=== PATIENT | female | born 1960 | race Caucasian/White ===

== ENCOUNTER 2017-03-26 13:11 | Emergency (ER) | payer SELFPAY ==
[~2017-03-26] VITALS: Ht 160 cm; Wt 72.0 kg
[~2017-03-26 13:11] MED LIST: RANI150C PO
[2017-03-26 13:18] VITALS: BP 188/96; PULSE 92; RESP 18; TEMP 98.1; O2SAT 96
[2017-03-26 13:35] VITALS: O2SAT 96
[2017-03-26 13:50] LABS: AUTOMATED NEUTROPHIL # 2.4 TH/MM3 (1.8-7.7); BASOPHIL % 0.6 % (0.0-2.0); EOSINOPHIL % 0.2 % (0.0-4.0); HEMATOCRIT 45.6 % (35.0-46.0); HEMOGLOBIN 16.1 GM/DL (11.6-15.3); LYMPH % 16.6 % (9.0-44.0); LYMPHOCYTE # 0.6 TH/MM3 (1.0-4.8); MEAN CELL VOLUME 96.6 FL (80.0-100.0); MEAN CORPUSCULAR HGB CONC 35.2 % (32.0-36.0); MEAN PLATELET VOLUME 9.7 FL (7.0-11.0); MONO % 15.7 % (0.0-8.0); MONOCYTE # 0.6 TH/MM3 (0-0.9); NEUT % 66.9 % (16.0-70.0); PLATELET COUNT 136 TH/MM3 (150-450); RED BLOOD COUNT 4.72 MIL/MM3 (4.00-5.30); RED CELL DISTRIBUTION WIDTH 12.5 % (11.6-17.2); WHITE BLOOD COUNT 3.6 TH/MM3 (4.0-11.0)
[2017-03-26 13:58] LABS: CHLORIDE 93 MEQ/L (98-107); SODIUM (NA) 131 MEQ/L (136-145)
[2017-03-26 14:02] LABS: ALBUMIN 3.9 GM/DL (3.4-5.0); BICARBONATE 21.9 MEQ/L (21.0-32.0); CALCIUM 8.9 MG/DL (8.5-10.1); GLUCOSE,RANDOM 99 MG/DL (74-106)
[2017-03-26 14:03] LABS: BLOOD UREA NITROGEN 16 MG/DL (7-18)
[2017-03-26 14:05] LABS: ALT (GPT) 203 U/L (10-53); AST (GOT) 243 U/L (15-37); CREATININE 0.71 MG/DL (0.50-1.00); GLOMERULAR FILTRATION RATE 85 ML/MIN (>89)
[2017-03-26 14:07] LABS: TOTAL BILIRUBIN ADULT 0.4 MG/DL (0.2-1.0); TOTAL PROTEIN 8.9 GM/DL (6.4-8.2)
[2017-03-26 14:08] LABS: ALKALINE PHOSPHATASE 96 U/L (45-117)
[2017-03-26] MEDS ORDERED: ONDANSETRON HCL 4 MG/2 ML VIAL IV PUSH ONE (14:45)
[2017-03-26] MEDS ORDERED: SODIUM CHLOR 0.9% 1000 ML INJ 1,000 ML IV ONE (14:45)
[2017-03-26] MEDS ORDERED: LORazepam 2 MG/ML VIAL IV PUSH ONE (14:45)
--- NOTE | 2017-03-26 15:16 | RADRPT ---
EXAM DATE/TIME: 03/26/2017 14:56 [place] COMPARISON: No previous studies available for comparison. INDICATIONS : Nausea and vomiting. MEDICAL HISTORY : Alcohol abuse. SURGICAL HISTORY : Tubal ligation. ENCOUNTER: Initial ACUITY: 3 days PAIN SCORE: 0/10 LOCATION: Right upper quadrant MEASUREMENTS: LIVER: 16.8 cm length COMMON DUCT: 6 mm RIGHT KIDNEY: 9.7 x 5.8 x 5.5 cm FINDINGS: Ultrasound of the upper abdomen demonstrates increased echogenicity of the liver compatible with fatt y infiltration or hepatocellular disease. The gallbladder and pancreas are unremarkable. No intrahepa tic or extrahepatic ductal dilatation is seen. The right kidney is unremarkable. CONCLUSION: 1. Echogenic liver compatible with fatty infiltration or hepatocellular disease. Justus Valverde MD on March 26, 2017 at 15:13 Board Certified Radiologist. This report was verified electronically.
[2017-03-26 15:26] VITALS: BP 180/87; PULSE 84; RESP 20; O2SAT 95
[2017-03-26 15:57] LABS: BLOOD, URINE NEG (NEG); GLUCOSE,URINE NEG (NEG); KETONE, URINE 80 OR GREATER mg/dL (NEG); NITRITE,URINE NEG (NEG); URINE LEUKOCYTE ESTERASE NEG (NEG)
--- NOTE | 2017-03-26 15:57 | PD ---
HPI Chief Complaint: Alcohol/Drug Intoxication Time Seen by Provider: 13:52 Travel History International Travel<30 days: No Contact w/Intl Traveler<30days: No Traveled to known affect area: No History of Present Illness HPI 57 year old female with history of alcohol abuse comes to the ED for alcohol withdrawal symptoms progressively worsening for the past three days after trying to wean herself off of alcohol. She has been drinking approximately half a gallon of Vodka every two days for the past two months secondary to depression and life stress. She admits to trying to quit alcohol consumptions two weeks ago however experienced shaking, chills and palpitations and began drinking again with resolution of those symptoms at that time. Her last alcohol drink was yesterday and she has been having episodes of N/V/D, tremors, cardiac palpitations, diaphoresis and at home. She also reports seeing "shadows" while alone at her house. She denies auditory hallucinations, suicidal and homicidal ideation, and seizures. She would like to get off alcohol and wants to receive residential treatment. Past history of bipolar/depression, not currently under psychiatric care. No other complaints. Risk Factors:History of alcohol abuse Modifying Factors:[None] Associated sign and symptoms: N/V/D, tremors, palpitations. PFSH Past Medical History Medical History: Denies Significant Hx Diminished Hearing: No Tetanus Vaccination: > 5 Years Influenza Vaccination: No ?: Not LMP: MENOPAUSAL Menopausal: Yes Tubal Ligation: Yes Past Surgical History Surgical History: No Previous Surgery Social History Alcohol Use: Yes (1/2 gallon vodka every two days) Tobacco Use: Yes (1 PPD) Substance Use: Yes (Marijuana occ.) Allergies-Medications (Allergen,Severity, Reaction): Coded Allergies: No Known Allergies (Unverified Adverse Reaction, Unknown, 03/26/17) Reported Meds & Prescriptions Reported Meds & Active Scripts Active Review of Systems Except as stated in HPI: all other systems reviewed are Neg Physical Exam Narrative GENERAL: Elderly women in ED, mild distress, tremulous, at bedside. Awake and oriented 3. SKIN: Warm and dry. HEAD: Atraumatic. Normocephalic. EYES: Pupils equal and round. No scleral icterus. No injection or drainage. ENT: No nasal bleeding or discharge. Mucous membranes pink and moist. NECK: Trachea midline. No JVD. Supple. CARDIOVASCULAR: Regular rate and rhythm. RESPIRATORY: No accessory muscle use. Clear to auscultation. Breath sounds equal bilaterally. GASTROINTESTINAL: Abdomen soft, non-tender, nondistended. Hepatic and splenic margins not palpable. MUSCULOSKELETAL: Extremities without clubbing, cyanosis, or edema. No obvious deformities. NEUROLOGICAL: Awake and alert. No obvious cranial nerve deficits. Motor grossly within normal limits, with bilateral UE tremors. Normal speech. PSYCHIATRIC: Appropriate mood and affect; insight and judgment normal. Data Data Last Documented VS Vital Signs Date Time Temp Pulse Resp B/P (MAP) Pulse Ox O2 Delivery O2 Flow Rate FiO2 03/26/17 15:26 84 20 180/87 (118) 95 03/26/17 13:35 Room Air 03/26/17 13:18 98.1 Orders Orders Complete Blood Count With Diff (03/26/17 13:32) Comprehensive Metabolic Panel (03/26/17 13:32) Urinalysis - C+S If Indicated (03/26/17 13:32) Iv Access Insert/Monitor (03/26/17 13:32) Oxygen Administration (03/26/17 13:32) Oximetry (03/26/17 13:32) Lipase (03/26/17 13:32) Alcohol (Ethanol) (03/26/17 13:32) Sodium Chlor 0.9% 1000 Ml Inj (Ns 1000 M (03/26/17 14:45) Ondansetron Inj (Zofran Inj) (03/26/17 14:45) Lorazepam Inj (Ativan Inj) (03/26/17 14:45) Us Abdomen Gallbladder (03/26/17 14:32) Ed Discharge Order (03/26/17 16:08) Labs Laboratory Tests Test 03/26/17 13:35 03/26/17 15:45 White Blood Count 3.6 TH/MM3 Red Blood Count 4.72 MIL/MM3 Hemoglobin 16.1 GM/DL Hematocrit 45.6 % Mean Corpuscular Volume 96.6 FL Mean Corpuscular Hemoglobin 34.0 PG Mean Corpuscular Hemoglobin Concent 35.2 % Red Cell Distribution Width 12.5 % Platelet Count 136 TH/MM3 Mean Platelet Volume 9.7 FL Neutrophils (%) (Auto) 66.9 % Lymphocytes (%) (Auto) 16.6 % Monocytes (%) (Auto) 15.7 % Eosinophils (%) (Auto) 0.2 % Basophils (%) (Auto) 0.6 % Neutrophils # (Auto) 2.4 TH/MM3 Lymphocytes # (Auto) 0.6 TH/MM3 Monocytes # (Auto) 0.6 TH/MM3 Eosinophils # (Auto) 0.0 TH/MM3 Basophils # (Auto) 0.0 TH/MM3 CBC Comment DIFF FINAL Differential Comment Blood Urea Nitrogen 16 MG/DL Creatinine 0.71 MG/DL Random Glucose 99 MG/DL Total Protein 8.9 GM/DL Albumin 3.9 GM/DL Calcium Level 8.9 MG/DL Alkaline Phosphatase 96 U/L Aspartate Amino Transf (AST/SGOT) 243 U/L Alanine Aminotransferase (ALT/SGPT) 203 U/L Total Bilirubin 0.4 MG/DL Sodium Level 131 MEQ/L Potassium Level 4.2 MEQ/L Chloride Level 93 MEQ/L Carbon Dioxide Level 21.9 MEQ/L Anion Gap 16 MEQ/L Estimat Glomerular Filtration Rate 85 ML/MIN Lipase 164 U/L Ethyl Alcohol Level LESS THAN 3 MG/DL Urine Color YELLOW Urine Turbidity SLIGHT Urine pH 6.0 Urine Specific [place] 1.025 Urine Protein 30 mg/dL Urine Glucose (UA) NEG mg/dL Urine Ketones 80 OR GREATER mg/dL Urine Occult Blood NEG Urine Nitrite NEG Urine Bilirubin NEG Urine Leukocyte Esterase NEG Urine WBC 0-2 /hpf Urine Squamous Epithelial Cells 0-5 /hpf Urine Amorphous Sediment FEW Urine Bacteria OCC /hpf Urine Hyaline Casts 15-19 /lpf Urine Mucus FEW /lpf Microscopic Urinalysis Comment CULT NOT INDICATED MDM Medical Decision Making Medical Screen Exam Complete: Yes Emergency Medical Condition: Yes Medical Record Reviewed: Yes Interpretation(s) Laboratory Tests Test 03/26/17 13:35 03/26/17 15:45 White Blood Count 3.6 TH/MM3 (4.0-11.0) Hemoglobin 16.1 GM/DL (11.6-15.3) Platelet Count 136 TH/MM3 (150-450) Monocytes (%) (Auto) 15.7 % (0.0-8.0) Lymphocytes # (Auto) 0.6 TH/MM3 (1.0-4.8) Total Protein 8.9 GM/DL (6.4-8.2) Aspartate Amino Transf (AST/SGOT) 243 U/L (15-37) Alanine Aminotransferase (ALT/SGPT) 203 U/L (10-53) Sodium Level 131 MEQ/L (136-145) Chloride Level 93 MEQ/L (98-107) Anion Gap 16 MEQ/L (5-15) Estimat Glomerular Filtration Rate 85 ML/MIN (>89) Urine Protein 30 mg/dL (NEG-TRACE) Urine Ketones 80 OR GREATER mg/dL (NEG) Urine Bacteria OCC /hpf (NONE) Urine Hyaline Casts 15-19 /lpf (RARE) Urine Mucus FEW /lpf (OCC) Last 24 hours Impressions Gall Bladder Ultrasound 03/26/17 1432 Signed Impressions: Service Date/Time: Sunday, March 26, 2017 14:56 - CONCLUSION: 1. Echogenic liver compatible with fatty infiltration or hepatocellular disease. Justus Valverde MD Differential Diagnosis Alcohol withdrawal, nausea, vomiting, diarrhea: Dehydration gastroenteritis versus gastritis versus pancreatitis colon versus electrolyte abnormality versus Narrative Course Lab work shows elevated liver enzymes and ultrasound was done to rule out cholecystitis or other acute hepatic processes. It does not show any signs of acute processes. Liver enzyme elevation is likely secondary to alcohol use. Abdomen is fairly benign otherwise. S patient was given IV fluids, Zofran, and Ativan in the ER. On reevaluation at 4 PM, she is a feeling improved, appears much more comfortable, and tremors have subsided. At this point, my plan would be to release her with treatment for alcohol withdrawal and [facility]. I will give her nausea medication as well. She should return for any worsening in symptoms. The plan has been discussed with her and she states understanding. Diagnosis Primary Impression: Alcohol withdrawal Additional Impression: Nausea and vomiting Med/Other Pt SpecificInfo: Prescription(s) given Scripts Ondansetron Odt (Zofran Odt) 4 Mg Tab 4 MG SL Q6HR Y for Nausea/Vomiting, #7 TAB 0 Refills Prov: Luzmaria Aguilar MD 03/26/17 Chlordiazepoxide HCl (Chlordiazepoxide HCl) 25 Mg Capsule 50 MG PO TID Y for WITHDRAWAL, #15 Prov: Luzmaria Aguilar MD 03/26/17 Disposition: 01 DISCHARGE HOME Condition: Stable Luzmaria Aguilar MD Mar 26, 2017 15:57
[2017-03-26 16:02] LABS: BILIRUBIN, URINE NEG (NEG)
[2017-03-26 16:03] LABS: URINE COLOR YELLOW (YELLW/STRAW)
[2017-03-26 16:05] LABS: HYALINE CAST, URINE 15-19 /lpf (RARE); MUCUS URINE FEW /lpf (OCC); SQUAMOUS EPITHELIAL CELL URINE 0-5 /hpf (0-5); WBC, URINE 0-2 /hpf (0-5)
[2017-03-26 16:06] LABS: AMORPHOUS SEDIMENT, URINE FEW; BACTERIA, URINE OCC /hpf
[2017-03-26] MEDS ORDERED: CHLO25CA9 PO (16:16)
[2017-03-26] MEDS ORDERED: ZOFR4TAB3 SL (16:16)
== END 2017-03-26 16:25 | disposition home or self-care (01) ==
LOC: PHED 13:11
DX: F10.239 Alcohol dependence with withdrawal, unspecified (principal); R11.2 Nausea with vomiting, unspecified; F32.9 Major depressive disorder, single episode, unspecified; F17.210 Nicotine dependence, cigarettes, uncomplicated
CPT/HCPCS: 76705; 80053; 80307; 81001; 83690; 85025; 96361; 96374; 96375; 99284; J2060; J2405; J7030

== ENCOUNTER 2017-07-11 07:56 | Emergency (ER) | payer SELFPAY ==
[~2017-07-11] VITALS: Ht 160 cm; Wt 71.0 kg
[~2017-07-11 07:56] MED LIST changes: +CHLO25CA9 PO; -RANI150C PO; +ZOFR4TAB3 SL
[2017-07-11 07:59] VITALS: BP 226/121; PULSE 86; RESP 16; TEMP 98.5; O2SAT 95
[2017-07-11] MEDS ORDERED: MULT1TAB46 PO (08:07)
[2017-07-11] MEDS ORDERED: chlordiazePOXIDE 25 MG CAP PO PRN (08:30)
[2017-07-11] MEDS ORDERED: SODIUM CHLOR 0.9% 1000 ML INJ 1,000 ML IV ONE (08:30)
[2017-07-11 09:23] LABS: AUTOMATED NEUTROPHIL # 5.9 TH/MM3 (1.8-7.7); BASOPHIL # 0.1 TH/MM3 (0-0.2); BASOPHIL % 1.9 % (0.0-2.0); EOSINOPHIL # 0.1 TH/MM3 (0-0.4); EOSINOPHIL % 0.7 % (0.0-4.0); HEMATOCRIT 42.7 % (35.0-46.0); HEMOGLOBIN 14.9 GM/DL (11.6-15.3); LYMPH % 12.2 % (9.0-44.0); LYMPHOCYTE # 0.9 TH/MM3 (1.0-4.8); MEAN CELL VOLUME 96.9 FL (80.0-100.0); MEAN CORPUSCULAR HEMOGLOBIN 33.7 PG (27.0-34.0); MEAN CORPUSCULAR HGB CONC 34.8 % (32.0-36.0); MEAN PLATELET VOLUME 9.3 FL (7.0-11.0); MONO % 7.9 % (0.0-8.0); MONOCYTE # 0.6 TH/MM3 (0-0.9); NEUT % 77.3 % (16.0-70.0); PLATELET COUNT 141 TH/MM3 (150-450); RED BLOOD COUNT 4.41 MIL/MM3 (4.00-5.30); RED CELL DISTRIBUTION WIDTH 13.7 % (11.6-17.2); WHITE BLOOD COUNT 7.6 TH/MM3 (4.0-11.0)
[2017-07-11 09:27] VITALS: BP 199/91; PULSE 70; RESP 18; O2SAT 95
[2017-07-11 10:21] LABS: CALCIUM 9.6 MG/DL (8.5-10.1)
[2017-07-11 10:22] LABS: ALBUMIN 3.9 GM/DL (3.4-5.0); BICARBONATE 25.3 MEQ/L (21.0-32.0); GLUCOSE,RANDOM 87 MG/DL (74-106)
[2017-07-11 10:23] LABS: CHLORIDE 109 MEQ/L (98-107); SODIUM (NA) 142 MEQ/L (136-145)
[2017-07-11 10:24] LABS: AST (GOT) 138 U/L (15-37)
[2017-07-11 10:25] LABS: CREATININE 0.39 MG/DL (0.50-1.00); GLOMERULAR FILTRATION RATE 171 ML/MIN (>89)
[2017-07-11 10:26] LABS: TOTAL BILIRUBIN ADULT 0.6 MG/DL (0.2-1.0)
[2017-07-11 10:27] LABS: ALKALINE PHOSPHATASE 75 U/L (45-117)
[2017-07-11 10:30] LABS: ALT (GPT) 160 U/L (10-53)
[2017-07-11 10:31] LABS: BLOOD UREA NITROGEN 8 MG/DL (7-18)
--- NOTE | 2017-07-11 11:03 | PD ---
HPI Chief Complaint: Neuro Symptoms/ Deficits Time Seen by Provider: 08:08 Travel History International Travel<30 days: No Contact w/Intl Traveler<30days: No Traveled to known affect area: No History of Present Illness HPI Patient is a 57-year-old female who comes in complaining of tremors. She was here in the past for this as well and was diagnosed with alcohol withdrawal. She is a daily drinker. She says the tremors have been going on for months. She says they get worse mid afternoon. She says they are not inhibiting her from working. She denies having any pains. She denies any headache, neck pain , chest pain or shortness of breath. She says she last drink yesterday. She denies any abdominal pain, nausea or vomiting. Severity is mild. PFSH Past Medical History Medical History: Denies Significant Hx Diminished Hearing: No ?: Not Menopausal: Yes Tubal Ligation: Yes Social History Alcohol Use: Yes (DAILY) Tobacco Use: Yes (1 PPD) Substance Use: Yes (Marijuana occ.) Allergies-Medications (Allergen,Severity, Reaction): Coded Allergies: No Known Allergies (Unverified Adverse Reaction, Unknown, 07/11/17) Reported Meds & Prescriptions Reported Meds & Active Scripts Active Reported Multi Vitamin Daily (Multiple Vitamin) 1 Tab Tab 1 Tab PO Review of Systems Except as stated in HPI: all other systems reviewed are Neg General / Constitutional: No: Fever, Chills Eyes: No: Blurred Vision HENT: No: Headaches, Lightheadedness Cardiovascular: No: Chest Pain or Discomfort, Palpitations Respiratory: No: Shortness of Breath Gastrointestinal: No: Nausea, Vomiting, Abdominal Pain Musculoskeletal: No: Myalgias, Edema Skin: No Rash, No Change in Pigmentation Neurologic: No: Weakness, Dizziness Physical Exam Narrative GENERAL: Awake and alert, in no acute distress. SKIN: Focused skin assessment warm/dry. HEAD: Atraumatic. Normocephalic. EYES: Pupils equal and round. No scleral icterus. ENT: Mucous membranes pink and moist. tongue fasciculations present. NECK: Trachea midline. No JVD. CARDIOVASCULAR: Regular rate and rhythm. No murmur appreciated. RESPIRATORY: No accessory muscle use. Clear to auscultation. Breath sounds equal bilaterally. GASTROINTESTINAL: Abdomen soft, non-tender, nondistended. MUSCULOSKELETAL: No obvious deformities. No clubbing. No cyanosis. No edema. NEUROLOGICAL: Awake and alert. No obvious cranial nerve deficits. Motor grossly within normal limits. Normal speech. Mild essential tremor. PSYCHIATRIC: Appropriate mood and affect; insight and judgment normal. Data Data Last Documented VS Vital Signs Date Time Temp Pulse Resp B/P (MAP) Pulse Ox O2 Delivery O2 Flow Rate FiO2 07/11/17 09:27 70 18 199/91 (127) 95 Room Air 07/11/17 07:59 98.5 Orders Orders Iv Access Insert/Monitor (07/11/17 08:19) Complete Blood Count With Diff (07/11/17 08:19) Comprehensive Metabolic Panel (07/11/17 08:19) Electrocardiogram (07/11/17 ) Alcohol (Ethanol) (07/11/17 08:19) Sodium Chlor 0.9% 1000 Ml Inj (Ns 1000 M (07/11/17 08:30) Chlordiazepoxide (Librium) (07/11/17 08:30) Labs Laboratory Tests Test 07/11/17 09:15 White Blood Count 7.6 TH/MM3 Red Blood Count 4.41 MIL/MM3 Hemoglobin 14.9 GM/DL Hematocrit 42.7 % Mean Corpuscular Volume 96.9 FL Mean Corpuscular Hemoglobin 33.7 PG Mean Corpuscular Hemoglobin Concent 34.8 % Red Cell Distribution Width 13.7 % Platelet Count 141 TH/MM3 Mean Platelet Volume 9.3 FL Neutrophils (%) (Auto) 77.3 % Lymphocytes (%) (Auto) 12.2 % Monocytes (%) (Auto) 7.9 % Eosinophils (%) (Auto) 0.7 % Basophils (%) (Auto) 1.9 % Neutrophils # (Auto) 5.9 TH/MM3 Lymphocytes # (Auto) 0.9 TH/MM3 Monocytes # (Auto) 0.6 TH/MM3 Eosinophils # (Auto) 0.1 TH/MM3 Basophils # (Auto) 0.1 TH/MM3 CBC Comment DIFF FINAL Differential Comment Blood Urea Nitrogen 8 MG/DL Creatinine 0.39 MG/DL Random Glucose 87 MG/DL Total Protein 8.0 GM/DL Albumin 3.9 GM/DL Calcium Level 9.6 MG/DL Alkaline Phosphatase 75 U/L Aspartate Amino Transf (AST/SGOT) 138 U/L Alanine Aminotransferase (ALT/SGPT) 160 U/L Total Bilirubin 0.6 MG/DL Sodium Level 142 MEQ/L Potassium Level 4.3 MEQ/L Chloride Level 109 MEQ/L Carbon Dioxide Level 25.3 MEQ/L Anion Gap 8 MEQ/L Estimat Glomerular Filtration Rate 171 ML/MIN Ethyl Alcohol Level 3 MG/DL MDM Medical Decision Making Medical Screen Exam Complete: Yes Emergency Medical Condition: Yes Medical Record Reviewed: Yes Interpretation(s) ECG shows NSR at a rate of 75. No ST elevation or depression. Differential Diagnosis Alcohol withdrawal versus dehydration versus benign essential tremor Narrative Course Patient is a 57-year-old female comes in complaining of a tremor. Exam shows a tremor in both hands. At some point it seems that she may be able to control it. However, tongue fasciculations are present on exam. IV sevens, labs sent. Labs show slight elevation in AST and ALT, this was present in the past. Patient is a chronic alcoholic. She is given information for [facility] and advised to seek help with detox. Given Librium and reports feeling better. Advised follow-up with a primary care doctor. Advised return to the ED as needed for any worsening symptoms. Diagnosis Primary Impression: Alcohol withdrawal Qualified Codes: F10.230 - Alcohol dependence with withdrawal, uncomplicated Additional Impression: Tremor Referrals: Erickson Mcfarlane MD PhD call for appointment [facility] call for appointment Patient Instructions: Alcohol Withdrawal (ED), General Instructions, Tremors ( ED) Additional Instructions: Seek treatment of detox from alcohol. Drink plenty of fluids. Follow up with a primary care doctor. Return to the ED as needed for any worsening symptoms. Disposition: 01 DISCHARGE HOME Condition: Stable Lamar Ballard MD July 11, 2017 11:03
[2017-07-11 11:06] VITALS: BP 168/100; PULSE 72; RESP 18; O2SAT 100
--- NOTE | 2017-07-12 07:26 | EKG ---
Date Performed: 07/11/2017 Time Performed: 08:27:57 PTAGE: 57 years EKG: Sinus rhythm POSSIBLE LEFT ATRIAL ENLARGEMENT BORDERLINE ECG INTERPRETATION BASED ON A DEFAULT AGE OF 40 YEARS NO PREVIOUS TRACING DOCTOR: Higinio Soto Interpretating Date/Time 07/12/2017 07:21:55
== END 2017-07-11 11:17 | disposition home or self-care (01) ==
LOC: PHED 07:56
DX: F10.230 Alcohol dependence with withdrawal, uncomplicated (principal); R25.1 Tremor, unspecified; R94.31 Abnormal electrocardiogram [ECG] [EKG]; Z72.0 Tobacco use
CPT/HCPCS: 80053; 80307; 85025; 93005; 96360; 99284; J7030

== ENCOUNTER 2017-07-15 17:55 | Emergency (ER) | payer SELFPAY ==
[~2017-07-15] VITALS: Ht 160 cm; Wt 70.0 kg
[~2017-07-15 17:55] MED LIST changes: -CHLO25CA9 PO; +MULT1TAB46 PO; -ZOFR4TAB3 SL
[2017-07-15 18:03] VITALS: BP 172/83; PULSE 74; RESP 21; TEMP 98.4; O2SAT 98
--- NOTE | 2017-07-15 18:09 | PD ---
HPI Chief Complaint: Medical clearance Time Seen by Provider: 18:04 Travel History International Travel<30 days: No Contact w/Intl Traveler<30days: No History of Present Illness HPI Patient comes emergency department by EMS from [facility] where she was for alcohol detox. Patient was sent for medical clearance secondary to having elevated blood pressure. Patient reports she was given 2 clonidine pills and Librium prior to being sent to the emergency department. Patient denies any chest pain with this, shortness of breath, headache, nauseous, vomiting, numbness or tingling, back pain, abdominal pain, dizziness, or change in vision. Patient reports that she was having some palpitations, but she feels this was probably secondary to withdrawal. Patient reports symptoms have improved since receiving medication prior to coming to the emergency department. Patient denies taking medications regularly, but reports in the past was told she needed to be on blood pressure medicine. Patient states she drinks about a pint of vodka a day. Denies anything making symptoms worse. Severity mild. PFSH Past Medical History Medical History: Denies Significant Hx Diminished Hearing: No Menopausal: Yes Tubal Ligation: Yes Social History Alcohol Use: Yes (DAILY) Tobacco Use: Yes (1 PPD) Substance Use: Yes (Marijuana occ.) Allergies-Medications (Allergen,Severity, Reaction): Coded Allergies: No Known Allergies (Unverified Adverse Reaction, Unknown, 07/11/17) Reported Meds & Prescriptions Reported Meds & Active Scripts Active Hydralazine HCl 25 Mg Tablet 25 Mg PO Q6HR PRN Clonidine (Clonidine HCl) 0.2 Mg Tab 0.2 Mg PO BID 14 Days Reported Multi Vitamin Daily (Multiple Vitamin) 1 Tab Tab 1 Tab PO Review of Systems Except as stated in HPI: all other systems reviewed are Neg Physical Exam Narrative GENERAL: Well-developed, overly nourished, in no acute distress, and non-ill appearing. SKIN: Focused skin assessment warm and dry. HEAD: Atraumatic. Normocephalic. EYES: Pupils equal and round. EOMI. No scleral icterus. No injection or drainage. ENT: No nasal bleeding or discharge. Mucous membranes pink and moist. NECK: Trachea midline. Supple. No nuclear rigidity. CARDIOVASCULAR: Regular rate and rhythm. No murmur appreciated. RESPIRATORY: No accessory muscle use. No respiratory distress. Clear to auscultation. Breath sounds equal bilaterally. MUSCULOSKELETAL: No obvious deformities. No clubbing. No cyanosis. No edema. Full range of motion. NEUROLOGICAL: Awake and alert. No obvious cranial nerve deficits. Motor grossly within normal limits. Normal speech. PSYCHIATRIC: Appropriate mood and affect; insight and judgment normal. Data Data Last Documented VS Vital Signs Date Time Temp Pulse Resp B/P (MAP) Pulse Ox O2 Delivery O2 Flow Rate FiO2 07/15/17 21:28 07/15/17 19:48 68 16 95 Room Air 07/15/17 18:03 98.4 Orders Orders Electrocardiogram (07/15/17 18:04) Basic Metabolic Panel (Bmp) (07/15/17 18:04) Ckmb (Isoenzyme) Profile (07/15/17 18:04) Complete Blood Count With Diff (07/15/17 18:04) Magnesium (Mg) (07/15/17 18:04) Prothrombin Time / Inr (Pt) (07/15/17 18:04) Act Partial Throm Time (Ptt) (07/15/17 18:04) Troponin I (07/15/17 18:04) Ecg Monitoring (07/15/17 18:04) Bilateral Bp Monitoring (07/15/17 18:04) Iv Access Insert/Monitor (07/15/17 18:04) Oximetry (07/15/17 18:04) Oxygen Administration (07/15/17 18:04) Sodium Chloride 0.9% Flush (Ns Flush) (07/15/17 18:15) Chest, Pa & Lat (07/15/17 18:04) Hydralazine (Apresoline) (07/15/17 19:15) Ed Discharge Order (07/15/17 20:29) Labs Laboratory Tests Test 07/15/17 18:16 White Blood Count 6.2 TH/MM3 Red Blood Count 4.12 MIL/MM3 Hemoglobin 14.0 GM/DL Hematocrit 40.4 % Mean Corpuscular Volume 98.0 FL Mean Corpuscular Hemoglobin 33.9 PG Mean Corpuscular Hemoglobin Concent 34.6 % Red Cell Distribution Width 13.8 % Platelet Count 165 TH/MM3 Mean Platelet Volume 9.6 FL CBC Comment AUTO DIFF Differential Total Cells Counted 100 Neutrophils % (Manual) 68 % Band Neutrophils % 1 % Lymphocytes % 19 % Monocytes % 11 % Eosinophils % 1 % Neutrophils # (Manual) 4.3 TH/MM3 Differential Comment FINAL DIFF MANUAL Platelet Estimate NORMAL Platelet Morphology Comment NORMAL Prothrombin Time 9.5 SEC Prothromb Time International Ratio 0.9 RATIO Activated Partial Thromboplast Time 25.7 SEC Blood Urea Nitrogen 10 MG/DL Creatinine 0.48 MG/DL Random Glucose 109 MG/DL Calcium Level 9.2 MG/DL Magnesium Level 1.7 MG/DL Sodium Level 138 MEQ/L Potassium Level 4.3 MEQ/L Chloride Level 102 MEQ/L Carbon Dioxide Level 28.8 MEQ/L Anion Gap 7 MEQ/L Estimat Glomerular Filtration Rate 134 ML/MIN Total Creatine Kinase 64 U/L Troponin I LESS THAN 0.02 NG/ML MDM Medical Decision Making Medical Screen Exam Complete: Yes Emergency Medical Condition: Yes Interpretation(s) EKG reviewed by Dr. Pa shows sinus rhythm with ventricular rate of 66. No STEMI. Last Impressions Chest X-Ray 07/15/17 5640 Signed Impressions: CONCLUSION: No active disease. Differential Diagnosis Uncontrolled hypertension, alcohol withdrawal symptoms, metabolic disturbance, arrhythmia Narrative Course The patient has a questionable history of hypertension, but denies ever being on medication for this. The patient has no symptoms as well. The patient denied headache, changes in vision, nausea, vomiting, dizziness, weakness or loss of sensation. The patient denied and chest, back or abdominal pain. The patient also denied any shortness of breath, dyspnea on exertion, orthopnea or PND. The patient denies any edema to extremities. The patients blood pressures at discharge were at an acceptable level. I discussed with the patient plan of care and for them to follow up with a primary care physician for continued outpatient evaluation and potential continuation and adjustment of blood pressure medications. Return warnings were given to the patient and the patient agreed with plan of care. Patient in no obvious distress upon re-evaluation. All pertinent laboratory/ Radiology result(s) discussed with patient. Discussed patient with Dr. Pa prior to discharge, who is in agreement with plan of care disposition. Patient was asked if they wanted to speak to my attending, which the patient did not wish to do at this time. Any questions/concerns in reference to patient diagnosis/condition discussed and clarified prior to patient's discharge. Reinforced sheer importance of close follow up with patient's primary physician or primary care clinic. Instructed patient to return to ED immediately, if symptoms return/worsen. Patient showed understanding of above instructions. Further instructions and recommendations were detailed in discharge paperwork. Patient ambulated without difficulty out of ED at discharge. Diagnosis Primary Impression: Hypertension Qualified Codes: I10 - Essential (primary) hypertension Referrals: [facility] Patient Instructions: General Instructions, Hypertension (ED) Additional Instructions: Follow-up with your primary care physician in 3-5 days for reevaluation and possible adjustment of your blood pressure medicine. Take all medication as prescribed. Return to the emergency department if symptoms get worse. Med/Other Pt SpecificInfo: Prescription(s) given Scripts Hydralazine HCl (Hydralazine HCl) 25 Mg Tablet 25 MG PO Q6HR Y for SBP> OR = 180, DBP> OR = 100, #56 TAB 0 Refills Prov: Valentin Pa MD 07/15/17 Clonidine (Clonidine) 0.2 Mg Tab 0.2 MG PO BID for Blood Pressure Management for 14 Days, #28 TAB 0 Refills Prov: Valentin Pa MD 07/15/17 Disposition: 01 DISCHARGE HOME (Back to [facility]) Condition: Stable Macario Paz July 15, 2017 18:09
[2017-07-15] MEDS ORDERED: SODIUM CHLORIDE 0.9% FLUSH 10 ML FLUSH IVF PRN (18:15)
--- NOTE | 2017-07-15 18:38 | RADRPT ---
EXAM DATE: 07/15/2017 6:34 PM EDT AGE/SEX: 57 years / Female INDICATIONS: Palpitations CLINICAL DATA: This is the patient's initial encounter. Patient reports that signs and symptoms have been present for 1 day and indicates a pain score of 0/10. MEDICAL/SURGICAL HISTORY: Hypertension. None. COMPARISON: No prior [facility] exams available for comparison. FINDINGS: PA and lateral views of the chest demonstrate the lungs to be symmetrically aerated without evidence of mass, infiltrate or effusion. The cardiomediastinal contours are unremarkable. Osseous structures are intact. CONCLUSION: No active disease. Electronically signed by: Mike Hooper MD 07/15/2017 6:37 PM EDT
[2017-07-15 18:42] LABS: HEMATOCRIT 40.4 % (35.0-46.0); MEAN CORPUSCULAR HEMOGLOBIN 33.9 PG (27.0-34.0); MEAN CORPUSCULAR HGB CONC 34.6 % (32.0-36.0); MEAN PLATELET VOLUME 9.6 FL (7.0-11.0); PLATELET COUNT 165 TH/MM3 (150-450); RED BLOOD COUNT 4.12 MIL/MM3 (4.00-5.30); RED CELL DISTRIBUTION WIDTH 13.8 % (11.6-17.2); WHITE BLOOD COUNT 6.2 TH/MM3 (4.0-11.0)
[2017-07-15 18:48] LABS: INTERNATIONAL NORMALIZED RATIO 0.9 RATIO; PROTHROMBIN TIME - PATIENT 9.5 SEC (9.8-11.6)
[2017-07-15 19:06] LABS: BICARBONATE 28.8 MEQ/L (21.0-32.0); BLOOD UREA NITROGEN 10 MG/DL (7-18); CALCIUM 9.2 MG/DL (8.5-10.1); CHLORIDE 102 MEQ/L (98-107); CREATININE 0.48 MG/DL (0.50-1.00); GLOMERULAR FILTRATION RATE 134 ML/MIN (>89); GLUCOSE,RANDOM 109 MG/DL (74-106); MAGNESIUM 1.7 MG/DL (1.5-2.5); SODIUM (NA) 138 MEQ/L (136-145); TROPONIN I LESS THAN 0.02 NG/ML (0.02-0.05)
[2017-07-15 19:12] LABS: BANDS 1 % (0-6); LYMPHOCYTES 19 % (9-44); MONOCYTES 11 % (0-8); NEUTROPHIL # MANUAL DIFF 4.3 TH/MM3 (1.8-7.7); POLYS (SEG NEUTROPHILS) 68 % (16-70)
[2017-07-15 19:14] VITALS: BP 202/111; PULSE 96; RESP 18; O2SAT 96
[2017-07-15] MEDS ORDERED: hydrALAZINE HCL 25 MG TAB PO ONE (19:15)
[2017-07-15 19:48] VITALS: BP 177/96; PULSE 68; RESP 16; O2SAT 95
[2017-07-15] MEDS ORDERED: HYDR-3799 PO (20:26)
[2017-07-15] MEDS ORDERED: CLON0.2T PO (20:26)
--- NOTE | 2017-07-16 13:38 | EKG ---
Date Performed: 07/15/2017 Time Performed: 18:40:19 PTAGE: 57 years EKG: Sinus rhythm POSSIBLE ANTERIOR MYOCARDIAL INFARCTION BORDERLINE ECG PREVIOUS TRACING : 07/11/2017 08.27 Futher loss of R-wave in V4, V5, and V6 compared to previou s. Possible lead placement but cannot rule out an occurring injury. DOCTOR: Vijay Hopper Interpretating Date/Time 07/16/2017 13:36:20
== END 2017-07-15 21:29 | disposition home or self-care (01) ==
LOC: NEPC 17:55
DX: I10 Essential (primary) hypertension (principal); R94.31 Abnormal electrocardiogram [ECG] [EKG]; R00.2 Palpitations; F17.200 Nicotine dependence, unspecified, uncomplicated; F12.90 Cannabis use, unspecified, uncomplicated
CPT/HCPCS: 71046; 80048; 82550; 83735; 84484; 85007; 85027; 85610; 85730; 93005